=== PATIENT | female | born 1985 | race American Indian/Alaskan Native ===

== ENCOUNTER 2017-09-07 02:51 | Emergency (ER) | payer MEDICAID ==
[2017-09-07] MEDS ORDERED: NACL 0.9% 1000 ML 1,000 ML IV ONE (03:46)
[2017-09-07 04:08] LABS: Basophils % (Auto) 0.3 % (0.0-1.8); Hematocrit 39.7 % (30.3-42.9); Hemoglobin 13.1 gm/dl (10.1-14.3); Lymphocytes # (Auto) 1.5 K/mm3 (1.2-5.4); Mean Corpuscular HGB Conc 33 % (30-34); Mean Corpuscular Hemoglobin 30 pg (28-32); Mean Corpuscular Volume 92 fl (79-97); Monocytes # (Auto) 0.8 K/mm3 (0.0-0.8); Monocytes % (Auto) 7.1 % (0.0-7.3); Platelet Count 398 K/mm3 (140-440); Red Blood Count 4.31 M/mm3 (3.65-5.03); Red Cell Distribution Width 13.7 % (13.2-15.2)
[2017-09-07 04:24] LABS: Albumin 4.5 g/dL (3.9-5); BUN/Creatinine Ratio 25; Blood Urea Nitrogen 15 mg/dL (7-17); Calcium 9.2 mg/dL (8.4-10.2); Hemolysis Index 0; Lipase 13 units/L (13-60)
[2017-09-07 04:26] LABS: Alanine Aminotransferase < 5 units/L (7-56)
[2017-09-07] MEDS ORDERED: ZOFRAN IV ONE (09:39)
[2017-09-07] MEDS ORDERED: PEPCID IV ONE (09:39)
--- NOTE | 2017-09-07 09:40 | Emergency Department Report ---
ED N/V/D HPI - General Chief complaint: Abdominal Pain Stated complaint: NAUSE &VOMITING Time Seen by Provider: 09/07/17 09:14 Source: patient, EMS Mode of arrival: Wheelchair Limitations: No Limitations - History of Present Illness MD complaint: nausea, vomiting, diarrhea -: days(s) (2) Description of Vomiting: food contents Description of Diarrhea: water Associated Abdominal Pain: Yes Location: diffuse Severity: mild Pain Scale: 4 Quality: cramping Consistency: intermittent Improves with: none Worsens with: none Context: possible food poisoning Associated Symptoms: nausea/vomiting, weakness. denies: myalgias, chest pain, cough, diaphoresis, headaches, loss of appetite, malaise, rash, shortness of breath, syncope - Related Data Previous Rx's Medication Instructions Recorded Last Taken Type Dicyclomine [Bentyl] 10 mg PO QID #15 capsule 09/07/17 Unknown Rx Diphenoxylate HCl/Atropine 1 each PO BID PRN #10 tablet 09/07/17 Unknown Rx [Lomotil 2.5-0.025 mg Tablet] Ondansetron [Zofran Odt] 4 mg PO Q8HR PRN #10 tab.rapdis 09/07/17 Unknown Rx Allergies Allergy/AdvReac Type Severity Reaction Status Date / Time acetaminophen Allergy Hives Verified 09/07/17 03:34 celery Allergy Hives Verified 09/07/17 04:00 peach Allergy Rash Verified 09/07/17 03:59 watermelon Allergy Vomiting Verified 09/07/17 04:00 ED Review of Systems ROS: Stated complaint: NAUSE &VOMITING Other details as noted in HPI Comment: All other systems reviewed and negative ED Past Medical Hx - Past Medical History Previous Medical History?: Yes Hx Hypertension: Yes Hx Asthma: Yes Additional medical history: Chronic Back pain - Surgical History Past Surgical History?: Yes Additional Surgical History: Multiple ortho surgeries Left shoulder, C Section - Social History Smoking Status: Never Smoker - Medications Home Medications: Home Medications Medication Instructions Recorded Confirmed Last Taken Type Dicyclomine [Bentyl] 10 mg PO QID #15 capsule 09/07/17 Unknown Rx Diphenoxylate HCl/Atropine 1 each PO BID PRN #10 tablet 09/07/17 Unknown Rx [Lomotil 2.5-0.025 mg Tablet] Ondansetron [Zofran Odt] 4 mg PO Q8HR PRN #10 tab.rapdis 09/07/17 Unknown Rx ED Physical Exam - General Limitations: No Limitations General appearance: alert, in no apparent distress - Head Head exam: Present: atraumatic, normocephalic - Eye Eye exam: Present: normal appearance - ENT ENT exam: Present: mucous membranes moist - Neck Neck exam: Present: normal inspection - Respiratory Respiratory exam: Present: normal lung sounds bilaterally. Absent: respiratory distress, wheezes, rales, rhonchi - Cardiovascular Cardiovascular Exam: Present: regular rate, normal rhythm. Absent: systolic murmur, diastolic murmur, rubs, gallop - GI/Abdominal GI/Abdominal exam: Present: soft, normal bowel sounds. Absent: distended, tenderness, guarding, rebound - Extremities Exam Extremities exam: Present: normal inspection - Back Exam Back exam: Present: normal inspection - Neurological Exam Neurological exam: Present: alert, oriented X3 - Psychiatric Psychiatric exam: Present: normal affect, normal mood - Skin Skin exam: Present: warm, dry, intact, normal color. Absent: rash ED Course Vital Signs 09/07/17 09/07/17 09/07/17 03:37 08:15 08:16 Temperature 100.2 F H 98.6 F Pulse Rate 77 76 Respiratory 20 17 17 Rate Blood Pressure 113/84 Blood Pressure 136/89 [Left] O2 Sat by Pulse 100 100 100 Oximetry ED Medical Decision Making - Lab Data Result diagrams: 09/07/17 03:50 09/07/17 03:50 - Medical Decision Making Patient been hydrated and given Zofran for nausea patient is feeling better after medications and patient be discharged home. Critical care attestation.: If time is entered above; I have spent that time in minutes in the direct care of this critically ill patient, excluding procedure time. ED Disposition Clinical Impression: Gastroenteritis Disposition: DC-01 TO HOME OR SELFCARE Is pt being admited?: No Does the pt Need Aspirin: No Condition: Stable Instructions: Gastroenteritis (ED) Referrals: PRIMARY CARE,MD [Primary Care Provider] - 3-5 Days
[2017-09-07] MEDS ORDERED: PEPCID ONE (10:05)
[2017-09-07] MEDS ORDERED: ZOFRAN ODT ONE (10:05)
[2017-09-07] MEDS ORDERED: PEPCID PO ONE (10:10)
[2017-09-07] MEDS ORDERED: ZOFRAN ODT PO ONE (10:10)
[2017-09-07 10:13] VITALS: BP 145/88
== END 2017-09-07 10:13 | disposition home or self-care (01) ==
LOC: EDSEX → EDBD → ED 02:51
DX: K52.9 Noninfective gastroenteritis and colitis, unspecified (principal); I10 Essential (primary) hypertension; J45.909 Unspecified asthma, uncomplicated; Z88.6 Allergy status to analgesic agent; Z91.018 Allergy to other foods
CPT/HCPCS: 36415; 80053; 83690; 84703; 85025; 96360; 96361; 99284; J7030; Q0162

== ENCOUNTER 2020-08-25 19:50 | Emergency (ER) | payer MEDICAID ==
[2020-08-25 21:10] VITALS: BP 141/87
[2020-08-25 22:00] LABS: Basophils % (Auto) 0.3 % (0.0-1.8); Eosinophils # (Auto) 0.2 K/mm3 (0.0-0.4); Eosinophils % (Auto) 1.1 % (0.0-4.3); Hematocrit 31.9 % (30.3-42.9); Hemoglobin 10.7 gm/dl (10.1-14.3); Lymphocytes # (Auto) 2.9 K/mm3 (1.2-5.4); Lymphocytes % (Auto) 17.9 % (13.4-35.0); Mean Corpuscular HGB Conc 34 % (30-34); Mean Corpuscular Volume 92 fl (79-97); Monocytes # (Auto) 1.2 K/mm3 (0.0-0.8); Monocytes % (Auto) 7.8 % (0.0-7.3); Platelet Count 358 K/mm3 (140-440); Red Blood Count 3.47 M/mm3 (3.65-5.03); Red Cell Distribution Width 16.6 % (13.2-15.2)
[2020-08-25 22:13] LABS: Bilirubin,Urine NEG (Negative); Blood,Urine NEG (Negative); Color,Urine Yellow (Yellow); Mucus,Urine FEW /HPF; Protein,Urine <15 mg/dL mg/dL (Negative)
--- NOTE | 2020-08-25 22:17 | Ultrasound Report ---
ULTRASOUND OBSTETRIC INDICATION / CLINICAL INFORMATION: Vaginal bleeding. Clinical Gestational Age (GA): 13.4 weeks.days TECHNIQUE: Transabdominal. COMPARISON: None available. FINDINGS: BABY A: GESTATIONAL SAC: Well-defined oval shape and intrauterine in location. YOLK SAC: No significant abnormality. EMBRYO/FETUS: Maternal right - [place]-Rump Length = 25.5 cm = 9.2 weeks.days - Heart Rate, beats per minute (if present) = 168 BABY B: GESTATIONAL SAC: Well-defined oval shape and intrauterine in location. YOLK SAC: No significant abnormality. EMBRYO/FETUS: Maternal left - [place]-Rump Length = 3.2 cm = 6.0 weeks.days - Heart Rate, beats per minute (if present) = Not visualized ADNEXA: No significant abnormality. FREE FLUID: None. ADDITIONAL FINDINGS: None. IMPRESSION: 1. Twin intrauterine gestation with findings concerning for demise of Baby B. 2. Baby A is a living intrauterine gestation measuring 9 weeks, 2 days by ultrasound and with h eart rate of 168 bpm. Signer Name: Justin Elizabeth MD Signed: 08/25/2020 10:13 PM Workstation Name: [id number]
[2020-08-26 07:32] LABS: Blood Urea Nitrogen 7 mg/dL (7-17); Calcium 9.3 mg/dL (8.4-10.2); Hemolysis Index 2
[2020-08-26 07:35] LABS: BUN/Creatinine Ratio 14
--- NOTE | 2020-08-26 08:05 | Ultrasound Report ---
ULTRASOUND OBSTETRIC INDICATION / CLINICAL INFORMATION: Vaginal bleeding. Clinical Gestational Age (GA): 13.4 weeks.days TECHNIQUE: Transabdominal. COMPARISON: None available. FINDINGS: BABY A: GESTATIONAL SAC: Well-defined oval shape and intrauterine in location. YOLK SAC: No significant abnormality. EMBRYO/FETUS: Maternal right - [place]-Rump Length = 25.5 cm = 9.2 weeks.days - Heart Rate, beats per minute (if present) = 168 BABY B: GESTATIONAL SAC: Well-defined oval shape and intrauterine in location. YOLK SAC: No significant abnormality. EMBRYO/FETUS: Maternal left - [place]-Rump Length = 3.2 cm = 6.0 weeks.days - Heart Rate, beats per minute (if present) = Not visualized ADNEXA: No significant abnormality. FREE FLUID: None. ADDITIONAL FINDINGS: None. IMPRESSION: 1. Twin intrauterine gestation with findings concerning for demise of Baby B. 2. Baby A is a living intrauterine gestation measuring 9 weeks, 2 days by ultrasound and with h eart rate of 168 bpm. Signer Name: Justin Elizabeth MD Signed: 08/25/2020 10:13 PM Workstation Name: [email or web address]
== END 2020-08-25 21:30 | disposition left against medical advice (07) ==
LOC: ED 19:50
DX: Z00.8 Encounter for other general examination (principal); Z53.21 Procedure and treatment not carried out due to patient leaving prior to being seen by health care provider
CPT/HCPCS: 36415; 76801; 76802; 80048; 81001; 84702; 85025; 87086